=== PATIENT | female | born 1945 | race Asian ===

== ENCOUNTER 2022-08-02 14:04 | Emergency (ER) | payer OTHER ==
[~2022-08-02] VITALS: Ht 162.6 cm; Wt 54.4 kg
[2022-08-02 14:07] VITALS: BP 124/71
--- NOTE | 2022-08-02 14:32 | NUR ---
MD BURK AT BEDSIDE FOR EVALUATION
--- NOTE | 2022-08-02 14:49 | NUR ---
XRAY AT BEDSIDE
--- NOTE | 2022-08-02 14:49 | NUR ---
LAB AT BEDSIDE
[2022-08-02 15:00] LABS: BASOPHILS % (AUTO) 0.3 % (0.0-2.0); EOSINOPHILS # (AUTO) 0.1 K/uL (0-0.4); EOSINOPHILS % (AUTO) 1.7 % (0.0-4.0); HEMATOCRIT 32.1 % (36-48); HEMOGLOBIN 10.8 g/dL (12.0-16.0); LYMPHOCYTES # (AUTO) 0.9 K/uL (2.5-16.5); LYMPHOCYTES % (AUTO) 15.9 % (20.5-51.1); MEAN CORPUSCULAR HEMOGLOBIN 34 pg (27-31); MEAN CORPUSCULAR HGB CONC 34 g/dL (33-37); MEAN CORPUSCULAR VOLUME 100.2 fL (80-94); MONOCYTES # (AUTO) 0.3 K/uL (0.8-1.0); MONOCYTES % (AUTO) 5.9 % (1.7-9.3); NEUTROPHILS # (AUTO) 4.3 K/uL (1.8-7.7); NEUTROPHILS % (AUTO) 76.2 % (42.2-75.2); PLATELET COUNT (AUTO) 174 K/uL (140-450); RED CELL DISTRIBUTION WIDTH 15.1 % (11.6-13.7); WHITE BLOOD COUNT (AUTO) 5.7 K/uL (4.8-10.8)
--- NOTE | 2022-08-02 15:04 | NUR ---
77YO FEMALE PT [facility] C/O SYNCOPE. FAMILY REPORTS PT STATED "FEELING DIZZY" AND HAD EPISODE WHILE WALKING TO RESTROOM -HEADINJURY . PT ASSISTED TO FLOOR BY FAMILY WHO NOTE PT WAS DIAPHORETIC AT THE TIME. LUMP/MASS NOTED ON L SIDE OF NECK "HAVE HAD IT FOR YEARS""DIDNT WANT SURGERY". DENIES N/V/D, CHEST PAIN, SOB , FEVER OR CHILLS. PT AAOX4, SPEAKING IN CLEAR FULL SENTENCES. 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 HX: AFIB, HTN, THYROID NKA
--- NOTE | 2022-08-02 15:05 | NUR ---
PT TAKEN TO CT VIA FAZAL
--- NOTE | 2022-08-02 15:22 | NUR ---
PT BROUGHT BACK VIA FAZAL
[2022-08-02 15:35] LABS: ANION GAP 12.9 (8-16); CARBON DIOXIDE 23.9 mmol/L (21-32); CHLORIDE 107 mmol/L (98-107); CREATININE 2.3 mg/dL (0.6-1.3); GLUCOSE 156 mg/dL (74-106); POTASSIUM 4.8 mmol/L (3.5-5.1); SODIUM SERUM 139 mmol/L (136-145); UREA NITROGEN, BLOOD 57 mg/dL (7-18)
[2022-08-02] MEDS ORDERED: NACL 0.9% 1,000 ML IV ONE (15:45)
[2022-08-02 17:12] LABS: APPEARANCE,URINE CLEAR (CLEAR); BILIRUBIN,URINE NEGATIVE (NEGATIVE); BLOOD, URINE NEGATIVE (NEGATIVE); COLOR,URINE YELLOW (YELLOW); LEUKOCYTE ESTERASE ,URINE NEGATIVE (NEGATIVE); NITRITE, URINE NEGATIVE (NEGATIVE); UGLUCOSE NEGATIVE (NEGATIVE)
[2022-08-02 19:00] VITALS: BP 136/71
--- NOTE | 2022-08-02 19:19 | NUR ---
REPORT GIVEN TO SHEY CRUMP. TRANSFER OF CARE AT THIS TIME
--- NOTE | 2022-08-02 19:20 | NUR ---
Patient discharged with v/s stable. Written and verbal after care instructions given and explained. Patient verbalized understanding. Ambulatory with steady gait. All questions addressed prior to discharge. Advised to follow up with PMD.
--- NOTE | 2022-08-04 09:42 | NUR ---
LATE ENTRY - CONFIRMED WITH RN NS INFUSION STARTED 08/02/22 AT 1548 COMPLETED AT 1648 SAME DAY
== END 2022-08-02 19:20 | disposition home or self-care (01) ==
LOC: MED 14:04
DX: R55 Syncope and collapse (principal); I10 Essential (primary) hypertension; E07.9 Disorder of thyroid, unspecified; Z79.899 Other long term (current) drug therapy
CPT/HCPCS: 36415; 70450; 71045; 80048; 81003; 84484; 85025; 93005; 96360; 99285; J7030; Q0092